=== PATIENT | female | born 1985 | race Caucasian/White ===

== ENCOUNTER 2018-10-08 11:03 | Inpatient (IN) | payer MEDICAID ==
[~2018-10-08 11:03] MED LIST: ETOMIDATE 20 MG INJ; LIDOCAINE 2% (SDV) 5 ML INJ; OXYTOCIN 30 UNITS/LR 500 ML BAG IV; SUCCINYLCHOLINE CHLORIDE 100 MG/5 ML SYG IV
[2018-10-08 12:08] LABS: ADD MAN DIFF? NO
[2018-10-08 12:16] LABS: ADD UMIC YES; UR ASCORBIC ACID NEGATIVE (NEGATIVE); UR BILIRUBIN (Dip) NEGATIVE (NEGATIVE); UR BLOOD (Dip) NEGATIVE (NEGATIVE); UR CLARITY CLEAR (CLEAR); UR COLOR YELLOW (YELLOW); UR GLUCOSE (Dip) NEGATIVE (NEGATIVE); UR KETONES (Dip) NEGATIVE (NEGATIVE); UR LEUKOCYTE ESTERASE (Dip) NEGATIVE Leu/ul (NEGATIVE); UR NITRITE (Dip) NEGATIVE (NEGATIVE); UR RBC 1 /HPF (0-5); UR SPECIFIC GRAVITY (Dip) 1.008 (1.003-1.030); UR TOTAL PROTEIN (Dip) 2+ mg/dl (NEGATIVE); UR UROBILINOGEN (Dip) NEGATIVE (NEGATIVE); UR WBC 0 /HPF (0-5)
[2018-10-08 12:17] LABS: WHITE BLOOD COUNT 8.3 10^3/ul (4.8-10.8)
[2018-10-08 12:17] LABS: BASOPHILS % 0.4 % (0.0-2.0); EOSINOPHILS % 0.4 % (0.0-7.0); HEMATOCRIT 38.7 % (37.0-47.0); HEMOGLOBIN 13.3 g/dl (12.0-16.0); LYMPHOCYTES # 1.9 10^3/ul (0.8-2.9); LYMPHOCYTES % 23.3 % (15.0-51.0); MEAN CORPUSCULAR HEMOGLOBIN 32.8 pg (29.0-33.0); MEAN CORPUSCULAR HGB CONC 34.4 g/dl (32.0-37.0); MEAN CORPUSCULAR VOLUME 95.3 fl (82.0-101.0); MONOCYTE # 0.6 10^3/ul (0.3-0.9); MONOCYTES % 7.2 % (0.0-11.0); NEUTROPHIL # 5.6 10^3/ul (1.6-7.5); PLATELET COUNT 103 10^3/UL (140-415); RED BLOOD COUNT 4.06 10^6/ul (4.20-5.40); RED CELL DISTRIBUTION WIDTH 13.6 % (11.5-14.5)
[2018-10-08] MEDS ORDERED: CA GLUCONATE (GM) 10% 10ML INJ IV ×2 (12:30→22:59)
[2018-10-08 12:32] LABS: ALANINE AMINOTRANSFERASE 76 IU/L (13-69); ALBUMIN/GLOBULIN RATIO 1.11; ALKALINE PHOSPHATASE 144 IU/L (42-121); ANION GAP 7 (5-13); ASPARTATE AMINO TRANSFERASE 63 IU/L (15-46); BILIRUBIN,INDIRECT 0.3 mg/dl (0-1.1); BILIRUBIN,TOTAL 0.3 mg/dl (0.2-1.3); BLOOD UREA NITROGEN 10 mg/dl (7-20); CALCIUM 7.9 mg/dl (8.4-10.2); CARBON DIOXIDE 22 mmol/L (21-31); CHLORIDE 108 mmol/L (97-110); CREATININE 0.72 mg/dl (0.44-1.00); Estimated GFR > 60 mL/min (>60); GLUCOSE 77 mg/dl (70-220); POTASSIUM 3.8 mmol/L (3.5-5.1); SODIUM 137 mmol/L (135-144); TOTAL PROTEIN 5.7 g/dl (6.1-8.1); URIC ACID 5.5 mg/dl (3.1-7.9)
[2018-10-08 12:34] LABS: INR 0.83; PROTIME 11.5 Sec (11.9-14.9); PT RATIO 0.9
[2018-10-08 12:35] LABS: PARTIAL THROMBOPLASTIN TIME 29.8 Sec (23.0-35.0)
[2018-10-08] MEDS ORDERED: CARBOPROST 250 MCG INJ IM (13:00)
[2018-10-08] MEDS ORDERED: IBUPROFEN 600 MG TAB PO (13:00)
[2018-10-08] MEDS ORDERED: LIDOCAINE 1% (MPF) 30 ML INJ INJ (13:00)
[2018-10-08] MEDS ORDERED: BUTORPHANOL 2 MG INJ IV (13:00)
[2018-10-08] MEDS ORDERED: METHYLERGONOVINE 0.2 MG INJ IM (13:00)
[2018-10-08] MEDS ORDERED: MISOPROSTOL 200 MCG TAB PR (13:00)
[2018-10-08] MEDS ORDERED: OXYTOCIN 30 UNITS/LR 500 ML IV ×3 (13:00→15:00)
[2018-10-08] MEDS: MAGNESIUM SULFATE 4 GM/100 ML 100 ML IV (13:35)
[2018-10-08] MEDS: LACTATED RINGER'S 1,000 ML IV ×3 (13:38→20:40)
[2018-10-08 13:45] LABS: HEPATITIS B SURFACE ANTIGEN NEGATIVE (NEGATIVE)
[2018-10-08] MEDS: MAGNESIUM SULFATE 20 GM/500 ML 500 ML IV ×2 (13:58→22:29)
[2018-10-08] MEDS: FAMOTIDINE 20 MG INJ IV (14:52)
[2018-10-08] MEDS ORDERED: NALOXONE (0.4 MG/ML) INJ IV ×2 (15:00→20:30)
[2018-10-08] MEDS ORDERED: ONDANSETRON 4 MG INJ IV ×3 (15:00→20:30)
[2018-10-08] MEDS ORDERED: DIPHENHYDRAMINE 50 MG INJ IV ×2 (15:00→20:30)
[2018-10-08] MEDS ORDERED: FENTAnyl 2MCG/ML-ROPIV 0.2% 100 ML BAG EPI (15:00)
[2018-10-08 15:18] LABS: RAPID PLASMA REAGIN NONREACTIVE (NR)
[2018-10-08] MEDS ORDERED: CEFAZOLIN 2 GM/50 ML (PMX) 50 ML IVPB (16:28)
[2018-10-08] MEDS ORDERED: OXYTOCIN 10 UNIT INJ ×2 (16:30→16:32)
[2018-10-08] MEDS ORDERED: PHENYLephrine 10 MG INJ ×2 (16:33→19:18)
[2018-10-08] MEDS ORDERED: PHENYLephrine (100 MCG/ML) 5ML SYG ×2 (16:33→18:48)
[2018-10-08] MEDS ORDERED: morphine SULFATE/PF (10 MG/10 ML) INJ (16:58)
[2018-10-08] MEDS ORDERED: FENTAnyl 50 MCG/ML VIAL ×2 (17:01→19:34)
[2018-10-08] MEDS ORDERED: THROMBIN 5000 UNIT VIAL (17:12)
[2018-10-08] MEDS ORDERED: GELATIN SIZE 100 SPONGE ×2 (17:12→17:23)
[2018-10-08 18:23] LABS: IMMEDIATE SPIN CROSSMATCH 1 12
[2018-10-08] MEDS ORDERED: PHENYLephrine 40 MG in DEXTROSE 5% 496 ML IV (20:30)
[2018-10-08] MEDS ORDERED: morphine 2 MG INJ IV ×2 (20:30)
[2018-10-08] MEDS ORDERED: ZOLPIDEM 5 MG TAB PO (20:30)
[2018-10-08 20:40] LABS: WHITE BLOOD COUNT 14.1 10^3/ul (4.8-10.8)
[2018-10-08 20:40] LABS: ABNORMAL IP MESSAGE 1; HEMATOCRIT 23.1 % (37.0-47.0); HEMOGLOBIN 7.4 g/dl (12.0-16.0); MEAN CORPUSCULAR HEMOGLOBIN 31.6 pg (29.0-33.0); MEAN CORPUSCULAR VOLUME 98.7 fl (82.0-101.0); MEAN PLATELET VOLUME 10.8 fl (7.4-10.4); NUCLEATED RED BLOOD CELLS% 0.2 /100WBC (0.0-0.0); PLATELET COUNT 65 10^3/UL (140-415); RED BLOOD COUNT 2.34 10^6/ul (4.20-5.40); RED CELL DISTRIBUTION WIDTH 14.6 % (11.5-14.5)
[2018-10-08] MEDS: PHENYLephrine 20MG IN 250 ML 250 ML IV ×2 (20:44→22:50)
[2018-10-08 20:45] LABS: POSITIVE DIFF @See below
[2018-10-08] MEDS: D5W-0.45 NACL + KCL 20 MEQ 1,000 ML IV (20:45)
[2018-10-08 20:48] LABS: AADO2 Arterial 123.5 mmHg (7.0-24.0); ADD MAN DIFF? YES; Allen Test ACCEPTAB; Arterial Base Excess -13.5 mmol/L (-3.0-3); Arterial Blood Gas Oxygen Sat 98.8 mmHG (95.0-98.0); Arterial COHb 0.3 % (0.0-3.0); Arterial Fraction of Oxyhgb 98.2 % (93.0-99.0); Arterial HCO3 14.1 mmol/L (22.0-26.0); Arterial MetHb 0.3 % (0.0-1.5); Arterial Total Hemglobin 8.8 g/dl (12.0-18.0); Arterial pCO2 39.7 mmhg (35-45); MODE VENT - AC; Site Right Radial
[2018-10-08 21:00] LABS: ANION GAP 8 (5-13); BLOOD UREA NITROGEN 9 mg/dl (7-20); CALCIUM 6.7 mg/dl (8.4-10.2); CARBON DIOXIDE 17 mmol/L (21-31); CHLORIDE 108 mmol/L (97-110); CREATININE 0.77 mg/dl (0.44-1.00); Estimated GFR > 60 mL/min (>60); GLUCOSE 243 mg/dl (70-220); POTASSIUM 4.2 mmol/L (3.5-5.1); SODIUM 133 mmol/L (135-144)
[2018-10-08 21:08] LABS: INR 1.24; PROTIME 15.8 Sec (11.9-14.9); PT RATIO 1.2
[2018-10-08 21:13] LABS: PARTIAL THROMBOPLASTIN TIME 40.1 Sec (23.0-35.0)
[2018-10-08 21:22] LABS: MAGNESIUM 3.1 mg/dl (1.7-2.5)
[2018-10-08 21:22] LABS: PHOSPHORUS 5.1 mg/dl (2.5-4.9)
[2018-10-08] MEDS: NA BICARBONATE 8.4% 50 ML SYG IV ×2 (22:15→22:33)
[2018-10-08] MEDS: FACTOR VIIA 1 MG VIAL IV (22:51)
[2018-10-08] MEDS ORDERED: CA GLUCONATE (50 MG/ML) IV SYG IV* (23:00)
[2018-10-08] MEDS ORDERED: FUROSEMIDE (10 MG/ML) IV SYG IV (23:00)
[2018-10-08] MEDS: FUROSEMIDE 20 MG INJ IV (23:06)
[2018-10-08] MEDS: PIPER-TAZO 3.375 GM IV (PMX) 100 ML IVPB (23:55)
[2018-10-08] MEDS: CALCIUM GLUCONATE 10% 1 GM in DEXTROSE 5% 100 ML IVPB (23:55)
[2018-10-09] MEDS: FAMOTIDINE 20 MG INJ IV ×3 (00:39→21:27)
[2018-10-09] MEDS: PHENYLephrine 20MG IN 250 ML 250 ML IV ×2 (01:01→04:12)
[2018-10-09] MEDS: FUROSEMIDE 20 MG INJ IV (01:59)
[2018-10-09 02:04] LABS: AADO2 Arterial 63.2 mmHg (7.0-24.0); Allen Test ACCEPTAB; Arterial Base Excess -15.4 mmol/L (-3.0-3); Arterial Blood Gas Oxygen Sat 98.9 mmHG (95.0-98.0); Arterial COHb 0.4 % (0.0-3.0); Arterial Fraction of Oxyhgb 98.1 % (93.0-99.0); Arterial HCO3 11.7 mmol/L (22.0-26.0); Arterial MetHb 0.4 % (0.0-1.5); Arterial Total Hemglobin 15.1 g/dl (12.0-18.0); Arterial pCO2 31.8 mmhg (35-45); MODE VENT - AC; Site Right Radial
[2018-10-09] MEDS: NA BICARBONATE 8.4% 50 ML SYG IV ×2 (03:32→03:42)
[2018-10-09] MEDS ORDERED: PROPOFOL 100 ML (03:33)
[2018-10-09] MEDS: PROPOFOL 100 ML IV ×4 (03:41→22:39)
[2018-10-09] MEDS: FUROSEMIDE 40 MG INJ IV (03:42)
[2018-10-09] MEDS: FUROSEMIDE 40 MG INJ IM (03:48)
[2018-10-09 03:49] LABS: ADD UMIC YES; UR AMORPHOUS CRYSTAL FEW /HPF (NONE SEEN); UR ASCORBIC ACID NEGATIVE (NEGATIVE); UR BACTERIA FEW /HPF (NONE SEEN); UR BILIRUBIN (Dip) NEGATIVE (NEGATIVE); UR BLOOD (Dip) 3+ mg/dL (NEGATIVE); UR CLARITY CLOUDY (CLEAR); UR COLOR AMBER (YELLOW); UR GLUCOSE (Dip) NEGATIVE (NEGATIVE); UR KETONES (Dip) NEGATIVE (NEGATIVE); UR LEUKOCYTE ESTERASE (Dip) NEGATIVE Leu/ul (NEGATIVE); UR MUCUS FEW /HPF (NONE SEEN); UR NITRITE (Dip) NEGATIVE (NEGATIVE); UR RBC 23 /HPF (0-5); UR SPECIFIC GRAVITY (Dip) 1.015 (1.003-1.030); UR TOTAL PROTEIN (Dip) 2+ mg/dl (NEGATIVE); UR UROBILINOGEN (Dip) 1+ mg/dL (NEGATIVE); UR WBC 7 /HPF (0-5)
[2018-10-09 04:08] LABS: HEMATOCRIT 40.5 % (37.0-47.0); HEMOGLOBIN 13.3 g/dl (12.0-16.0)
[2018-10-09 04:24] LABS: IMMEDIATE SPIN CROSSMATCH 1
[2018-10-09] MEDS ORDERED: PHENYLephrine 40 MG in DEXTROSE 5% 496 ML IV (04:30)
[2018-10-09] MEDS: LACTATED RINGER'S 1,000 ML IV ×3 (04:40→20:40)
[2018-10-09 05:28] LABS: AADO2 Arterial 79.6 mmHg (7.0-24.0); Allen Test ACCEPTAB; Arterial Base Excess -7.1 mmol/L (-3.0-3); Arterial Blood Gas Oxygen Sat 98.3 mmHG (95.0-98.0); Arterial COHb 0.1 % (0.0-3.0); Arterial Fraction of Oxyhgb 97.9 % (93.0-99.0); Arterial HCO3 17.5 mmol/L (22.0-26.0); Arterial MetHb 0.3 % (0.0-1.5); Arterial Total Hemglobin 13.4 g/dl (12.0-18.0); Arterial pCO2 32.6 mmhg (35-45); MODE VENT - AC; Site Right Radial
[2018-10-09 05:38] LABS: PRETRANSFUSION BILIRUBIN 0.3 mg/dl
[2018-10-09 05:39] LABS: POST-TRANSFUSION BILIRUBIN 1.9 mg/dl
[2018-10-09] MEDS: D5W-0.45 NACL + KCL 20 MEQ 1,000 ML IV (06:17)
[2018-10-09] MEDS: PIPER-TAZO 3.375 GM IV (PMX) 100 ML IVPB ×5 (06:18→23:32)
[2018-10-09 06:38] LABS: HEMATOCRIT 41.8 % (37.0-47.0); HEMOGLOBIN 13.8 g/dl (12.0-16.0)
[2018-10-09] MEDS: PHENYLephrine 40 MG in DEXTROSE 5% 496 ML IV (06:55)
[2018-10-09] MEDS ORDERED: MANNITOL 20% 250 ML IV (07:00)
[2018-10-09 07:26] LABS: WHITE BLOOD COUNT 2.5 10^3/ul (4.8-10.8)
[2018-10-09 07:26] LABS: ABNORMAL IP MESSAGE 1; HEMATOCRIT 40.4 % (37.0-47.0); HEMOGLOBIN 13.3 g/dl (12.0-16.0); MEAN CORPUSCULAR HEMOGLOBIN 29.6 pg (29.0-33.0); MEAN CORPUSCULAR HGB CONC 32.9 g/dl (32.0-37.0); MEAN PLATELET VOLUME 11.1 fl (7.4-10.4); PLATELET COUNT 55 10^3/UL (140-415); RED BLOOD COUNT 4.49 10^6/ul (4.20-5.40)
[2018-10-09 07:33] LABS: POSITIVE DIFF @See below
[2018-10-09 07:34] LABS: ADD MAN DIFF? YES
[2018-10-09 07:42] LABS: INR 1.23; PROTIME 15.7 Sec (11.9-14.9); PT RATIO 1.2
[2018-10-09 07:43] LABS: PARTIAL THROMBOPLASTIN TIME 42.2 Sec (23.0-35.0)
[2018-10-09 07:46] LABS: ALBUMIN 2.2 g/dl (3.3-4.9); ALBUMIN/GLOBULIN RATIO 1.22; ALKALINE PHOSPHATASE 84 IU/L (42-121); ANION GAP 15 (5-13); BILIRUBIN,INDIRECT 0.9 mg/dl (0-1.1); BILIRUBIN,TOTAL 1.9 mg/dl (0.2-1.3); BLOOD UREA NITROGEN 11 mg/dl (7-20); CALCIUM 6.5 mg/dl (8.4-10.2); CARBON DIOXIDE 16 mmol/L (21-31); CHLORIDE 108 mmol/L (97-110); CREATININE 1.48 mg/dl (0.44-1.00); Estimated GFR 40 mL/min (>60); GLUCOSE 165 mg/dl (70-220); MAGNESIUM 2.7 mg/dl (1.7-2.5); PHOSPHORUS 2.7 mg/dl (2.5-4.9); POTASSIUM 3.9 mmol/L (3.5-5.1); SODIUM 139 mmol/L (135-144)
[2018-10-09 07:53] LABS: PLATELET COUNT 55 10^3/UL (140-415)
[2018-10-09 07:53] LABS: FIBRIN SPLIT PRODUCT >40 and <80 ug/ml (<10)
[2018-10-09 08:08] LABS: PROTIME 15.7 Sec (11.9-14.9); PT RATIO 1.2
[2018-10-09 08:09] LABS: INR 1.23; PARTIAL THROMBOPLASTIN TIME 42.2 Sec (23.0-35.0)
[2018-10-09 08:25] LABS: ASPARTATE AMINO TRANSFERASE 4851 IU/L (15-46)
[2018-10-09] MEDS: MAGNESIUM SULFATE 20 GM/500 ML 500 ML IV ×2 (08:29→18:29)
[2018-10-09 08:36] LABS: ALANINE AMINOTRANSFERASE 5606 IU/L (13-69)
[2018-10-09] MEDS: MANNITOL 25% 50 ML INJ IV (09:12)
[2018-10-09] MEDS: FUROSEMIDE 250 MG in DEXTROSE 5% 225 ML IV ×2 (09:15→16:46)
[2018-10-09 09:21] LABS: THROMBIN TIME 32.4 SEC (13.8-19.1)
[2018-10-09] MEDS: DOPamine-D5W 1.6 MG/ML 250 ML IV (09:50)
[2018-10-09 10:19] LABS: ANISOCYTOSIS 1+ (0-0); BAND NEUTROPHILS #M 0.9 10^3/ul (0.0-0.6); BAND NEUTROPHILS % (M) 39 % (0-4); BURR CELLS 1+ (0-0); ERYTHROBLAST% (NRBC) (M) 6 % (0-0); GIANT THROMBO% (M) 1 % (0-0); LYMPHOCYTES #M 1.1 10^3/ul (0.8-2.9); LYMPHOCYTES % (M) 47 % (15-51); METAMYELOCYTES #M 0.1 10^3/ul (0.0-0.0); METAMYELOCYTES %M 7 % (0-0); MONOCYTE #M 0.1 10^3/ul (0.3-0.9); MONOCYTES % (M) 4 % (0-11); PLATELET ESTIMATE DECREASED; POIKILOCYTOSIS 1+ (0-0); POLYCHROMASIA 1+ (0-0); SEG NEUT #M 0.1 10^3/ul (1.6-7.5); SEGMENTED NEUTROPHILS (M) % 3 % (39-77); SMUDGE%M 43 % (0-0)
[2018-10-09 10:23] LABS: AADO2 Arterial 138.2 mmHg (7.0-24.0); Allen Test ACCEPTAB; Arterial Blood Gas Oxygen Sat 95.7 mmHG (95.0-98.0); Arterial COHb 0.3 % (0.0-3.0); Arterial Fraction of Oxyhgb 95.3 % (93.0-99.0); Arterial HCO3 16.4 mmol/L (22.0-26.0); Arterial MetHb 0.1 % (0.0-1.5); Arterial Total Hemglobin 12.7 g/dl (12.0-18.0); Arterial pCO2 27.2 mmhg (35-45); MODE VENT - AC; Site Right Radial
[2018-10-09] MEDS: MANNITOL 25% 50 ML INJ IV* ×2 (10:28→17:45)
[2018-10-09] MEDS: CALCIUM GLUCONATE 10% 2 GM in DEXTROSE 5% 100 ML IVPB (11:22)
[2018-10-09 11:30] LABS: MAGNESIUM 2.6 mg/dl (1.7-2.5)
[2018-10-09 11:37] LABS: LACTIC ACID 6.1 mmol/L (0.5-2.0)
[2018-10-09] MEDS ORDERED: NORepinephrine 8MG/250 ML (PMX 250 ML (11:51)
[2018-10-09] MEDS ORDERED: NORepinephrine 8MG/250 ML (PMX 250 ML IV (12:00)
[2018-10-09 12:39] LABS: IMMEDIATE SPIN CROSSMATCH 1
[2018-10-09] MEDS: CLINDAMYCIN 900 MG/D5W (PMX) 50 ML IVPB ×2 (13:06→17:45)
[2018-10-09] MEDS: SODIUM BICARBONATE (IV ADD) 150 MEQ in DEXTROSE 5% 1,000 ML IV (13:07)
[2018-10-09] MEDS: NORepinephrine 8MG/250 ML (PMX 250 ML IV (13:19)
[2018-10-09 14:35] LABS: AADO2 Arterial 164.3 mmHg (7.0-24.0); Allen Test ACCEPTAB; Arterial Base Excess -2.7 mmol/L (-3.0-3); Arterial Blood Gas Oxygen Sat 97.7 mmHG (95.0-98.0); Arterial COHb 0.2 % (0.0-3.0); Arterial Fraction of Oxyhgb 97.1 % (93.0-99.0); Arterial HCO3 20.8 mmol/L (22.0-26.0); Arterial MetHb 0.4 % (0.0-1.5); Arterial Total Hemglobin 10.7 g/dl (12.0-18.0); Arterial pCO2 31.7 mmhg (35-45); MODE VENT - AC; Site Right Radial
[2018-10-09 14:38] LABS: LACTIC ACID 5.2 mmol/L (0.5-2.0)
[2018-10-09 15:25] LABS: TYPE AND SCREEN 1
[2018-10-09] MEDS: ALBUMIN HUMAN 25% 100 ML IV (17:16)
[2018-10-09] MEDS: PANTOPRAZOLE 40 MG INJ IV (17:45)
[2018-10-09 19:44] LABS: MAGNESIUM 2.2 mg/dl (1.7-2.5)
[2018-10-09] MEDS: BUMETANIDE 12 MG in DEXTROSE 5% 72 ML IV (20:23)
[2018-10-09 22:48] LABS: ABNORMAL IP MESSAGE 1; HEMATOCRIT 22.3 % (37.0-47.0); HEMOGLOBIN 7.8 g/dl (12.0-16.0); MEAN CORPUSCULAR VOLUME 88.5 fl (82.0-101.0); MEAN PLATELET VOLUME 9.3 fl (7.4-10.4); NUCLEATED RED BLOOD CELLS% 0.4 /100WBC (0.0-0.0); PLATELET COUNT 67 10^3/UL (140-415); RED BLOOD COUNT 2.52 10^6/ul (4.20-5.40); RED CELL DISTRIBUTION WIDTH 15.4 % (11.5-14.5)
[2018-10-09 23:05] LABS: POSITIVE DIFF @See below
[2018-10-09 23:06] LABS: ADD MAN DIFF? YES
[2018-10-09 23:07] LABS: ALBUMIN 2.6 g/dl (3.3-4.9); ALBUMIN/GLOBULIN RATIO 1.44; ALKALINE PHOSPHATASE 167 IU/L (42-121); ANION GAP 16 (5-13); BILIRUBIN,INDIRECT 1.2 mg/dl (0-1.1); BILIRUBIN,TOTAL 2.6 mg/dl (0.2-1.3); BLOOD UREA NITROGEN 17 mg/dl (7-20); CALCIUM 6.4 mg/dl (8.4-10.2); CARBON DIOXIDE 20 mmol/L (21-31); CHLORIDE 99 mmol/L (97-110); CREATININE 2.85 mg/dl (0.44-1.00); Estimated GFR 19 mL/min (>60); GLUCOSE 74 mg/dl (70-220); SODIUM 135 mmol/L (135-144); TOTAL PROTEIN 4.4 g/dl (6.1-8.1)
[2018-10-09 23:09] LABS: INR 1.69; PROTIME 20.2 Sec (11.9-14.9); PT RATIO 1.6
[2018-10-09 23:10] LABS: PARTIAL THROMBOPLASTIN TIME 48.7 Sec (23.0-35.0)
[2018-10-09 23:16] LABS: LACTIC ACID 8.5 mmol/L (0.5-2.0)
[2018-10-09 23:29] LABS: ALANINE AMINOTRANSFERASE 6963 IU/L (13-69)
[2018-10-09 23:33] LABS: D-DIMER > 10000.00 ng/ml (<460)
[2018-10-09 23:39] LABS: ASPARTATE AMINO TRANSFERASE > 7500 IU/L (15-46)
[2018-10-10 00:02] LABS: FIBRIN SPLIT PRODUCT >10 and <40 ug/ml (<10)
[2018-10-10] MEDS: CLINDAMYCIN 600 MG/D5W (PMX) 50 ML IVPB (00:14)
[2018-10-10] MEDS: SODIUM BICARBONATE (IV ADD) 150 MEQ in DEXTROSE 5% 1,000 ML IV (00:29)
[2018-10-10 00:32] LABS: WHITE BLOOD COUNT 5.8 10^3/ul (4.8-10.8)
[2018-10-10 00:32] LABS: ABNORMAL IP MESSAGE 1; HEMATOCRIT 21.8 % (37.0-47.0); HEMOGLOBIN 7.5 g/dl (12.0-16.0); MEAN CORPUSCULAR HEMOGLOBIN 30.7 pg (29.0-33.0); MEAN CORPUSCULAR HGB CONC 34.4 g/dl (32.0-37.0); MEAN CORPUSCULAR VOLUME 89.3 fl (82.0-101.0); MEAN PLATELET VOLUME 10.1 fl (7.4-10.4); NUCLEATED RED BLOOD CELLS% 0.7 /100WBC (0.0-0.0); PLATELET COUNT 52 10^3/UL (140-415); RED BLOOD COUNT 2.44 10^6/ul (4.20-5.40); RED CELL DISTRIBUTION WIDTH 15.7 % (11.5-14.5)
[2018-10-10 00:44] LABS: ADD MAN DIFF? YES; POSITIVE DIFF @See below
[2018-10-10 00:52] LABS: MAGNESIUM 2.3 mg/dl (1.7-2.5)
[2018-10-10 00:59] LABS: AADO2 Arterial 122.6 mmHg (7.0-24.0); Arterial Base Excess -2.8 mmol/L (-3.0-3); Arterial Blood Gas Oxygen Sat 96.3 mmHG (95.0-98.0); Arterial COHb 0.3 % (0.0-3.0); Arterial Fraction of Oxyhgb 95.1 % (93.0-99.0); Arterial HCO3 20.9 mmol/L (22.0-26.0); Arterial MetHb 0.9 % (0.0-1.5); Arterial Total Hemglobin 8.4 g/dl (12.0-18.0); Arterial pCO2 31.7 mmhg (35-45); MODE VENT - AC; Site Right Brachial
[2018-10-10] MEDS: ALBUMIN HUMAN 25% 100 ML IV (01:48)
[2018-10-10] MEDS: PROPOFOL 100 ML IV (03:12)
[2018-10-10 03:19] LABS: ANISOCYTOSIS 2+ (0-0); BAND NEUTROPHILS #M 1.7 10^3/ul (0.0-0.6); BAND NEUTROPHILS % (M) 35 % (0-4); EOSINOPHILS % (M) 2 % (0-7); ERYTHROBLAST% (NRBC) (M) 3 % (0-0); LYMPHOCYTES #M 0.7 10^3/ul (0.8-2.9); LYMPHOCYTES % (M) 15 % (15-51); METAMYELOCYTES #M 0.7 10^3/ul (0.0-0.0); METAMYELOCYTES %M 14 % (0-0); MICROCYTOSIS 2+ (0-0); MONOCYTE #M 0.3 10^3/ul (0.3-0.9); MONOCYTES % (M) 6 % (0-11); PLATELET ESTIMATE DECREASED; POLYCHROMASIA 1+ (0-0); PROMYELOCYTES % (M) 1 % (0-0); SEG NEUT #M 1.4 10^3/ul (1.6-7.5); SEGMENTED NEUTROPHILS (M) % 27 % (39-77); SMUDGE%M 34 % (0-0)
[2018-10-10 04:45] LABS: BAND NEUTROPHILS #M 2.2 10^3/ul (0.0-0.6); BAND NEUTROPHILS % (M) 38 % (0-4); BASOPHILS % (M) 1 % (0-2); EOSINOPHILS % (M) 1 % (0-7); GIANT THROMBO% (M) 1 % (0-0); LYMPHOCYTES #M 1.6 10^3/ul (0.8-2.9); LYMPHOCYTES % (M) 29 % (15-51); METAMYELOCYTES #M 0.4 10^3/ul (0.0-0.0); METAMYELOCYTES %M 8 % (0-0); MONOCYTE #M 0.2 10^3/ul (0.3-0.9); MONOCYTES % (M) 4 % (0-11); SEG NEUT #M 1.2 10^3/ul (1.6-7.5); SEGMENTED NEUTROPHILS (M) % 19 % (39-77); SMUDGE%M 17 % (0-0)
== END 2018-10-10 04:09 | disposition short-term general hospital (02) | DRG 786 ==
LOC: OBT 11:03 → L-D 11:03 → OBT 12:26 → L-D 11:55 → ICU 19:55
PROC: 10D00Z1 Extraction of Products of Conception, Low, Open Approach (ICD-10-PCS; principal; 2018-10-08)
PROC: 0WCG0ZZ Extirpation of Matter from Peritoneal Cavity, Open Approach (ICD-10-PCS; 2018-10-08)
PROC: 0W3G0ZZ Control Bleeding in Peritoneal Cavity, Open Approach (ICD-10-PCS; 2018-10-08)
PROC: 30233K1 Transfusion of Nonautologous Frozen Plasma into Peripheral Vein, Percutaneous Approach (ICD-10-PCS; 2018-10-08)
PROC: 30233N1 Transfusion of Nonautologous Red Blood Cells into Peripheral Vein, Percutaneous Approach (ICD-10-PCS; 2018-10-08)
PROC: 30233R1 Transfusion of Nonautologous Platelets into Peripheral Vein, Percutaneous Approach (ICD-10-PCS; 2018-10-08)
PROC: 30233M1 Transfusion of Nonautologous Plasma Cryoprecipitate into Peripheral Vein, Percutaneous Approach (ICD-10-PCS; 2018-10-08)
PROC: 3E033XZ Introduction of Vasopressor into Peripheral Vein, Percutaneous Approach (ICD-10-PCS; 2018-10-08)
PROC: 5A1945Z Respiratory Ventilation, 24-96 Consecutive Hours (ICD-10-PCS; 2018-10-08)
PROC: 02HV33Z Insertion of Infusion Device into Superior Vena Cava, Percutaneous Approach (ICD-10-PCS; 2018-10-09)
DX: O14.14 Severe pre-eclampsia complicating childbirth (principal); A41.9 Sepsis, unspecified organism; R65.20 Severe sepsis without septic shock; S36.114A Minor laceration of liver, initial encounter; N17.9 Acute kidney failure, unspecified; E87.2 Acidosis; O72.3 Postpartum coagulation defects; O75.89 Other specified complications of labor and delivery; O24.429 Gestational diabetes mellitus in childbirth, unspecified control; O13.4 Gestational [pregnancy-induced] hypertension without significant proteinuria, complicating childbirth; O76 Abnormality in fetal heart rate and rhythm complicating labor and delivery; R10.13 Epigastric pain; D69.6 Thrombocytopenia, unspecified; Z3A.38 38 weeks gestation of pregnancy; Z37.0 Single live birth
CPT/HCPCS: 36430; 36600; 62319; 71045; 76815; 76818; 80048; 80053; 81001; 82803; 83605; 83735; 84100; 84145; 84560; 85014; 85018; 85025; 85049; 85362; 85378; 85384; 85610; 85670; 85730; 86078; 86592; 86644; 86850; 86900; 86901; 86920; 86945; 87081; 87340; 88307; 93005; 93306; 94002; 94003; 94770; 99464